=== PATIENT | female | born 1990 | race African-American/Black ===

== ENCOUNTER 2017-06-17 16:06 | Emergency (ER) | payer MEDICAID ==
[2017-06-17] MEDS ORDERED: IBUPROFEN 800 MG TABLET PO ONE (17:11)
[2017-06-17] MEDS ORDERED: PENICILLIN V POTASSIUM 500 MG TABLET PO ONE (17:11)
--- NOTE | 2017-06-17 17:13 | ER Document Report ---
HPI - HPI Patient complains to provider of: Toothache Pain Level: 5 Context: patient is a 26-year-old female presents emergency department complaining of right lower toothache that started last evening over the tooth #32. She denies any facial swelling, fevers or chills, active drainage, foul odor. She denies any difficulty swallowing, shortness of breath, chest pain, neck swelling. States that she took Tylenol prior to arrival. Last menstrual period is currently. Past Medical History - Social History Smoking Status: Smoker,Current Status Unk Family History: Reviewed & Not Pertinent Patient has suicidal ideation: No Patient has homicidal ideation: No Renal/ Medical History: Denies: Hx Peritoneal Dialysis Vertical Provider Document - CONSTITUTIONAL Agree With Documented VS: Yes Notes: PHYSICAL EXAM GENERAL: Alert, interacts well. HEENT: NCAT, MMM, Uvula midline. Airway patent. No evidence of tonsillar enlargement, peritonsillar abscess, retropharyngeal abscess. Tenderness over # 32 without any evidence of gingival inflammation, swelling, fracture or evidence of dental caries NECK: Full range of motion. Supple. Trachea midline. No evidence of Angus's angina LUNGS: Clear to auscultation bilaterally, no wheezes, rales, or rhonchi. No respiratory distress. NEUROLOGICAL: Alert and oriented x4. Normal speech. PSYCH: Normal affect, normal mood. SKIN: Warm, dry, normal turgor. No rashes or lesions noted. - INFECTION CONTROL TRAVEL OUTSIDE OF THE [place] IN LAST 30 DAYS: No - RESPIRATORY O2 Sat by Pulse Oximetry: 100 Course - Re-evaluation Re-evalutation: 06/17/17 17:12 Patient is a 26-year-old female is hemodynamically stable, no acute distress and afebrile. Patient declined a dental block at this time. Otherwise initiated on antibiotics and provided with dental follow-up. Presentation is most consistent with likely an infected tooth. Airway is patent. Vitals within normal limits. Patient is able swallow without any difficulty. There is no significant facial swelling. Patient will be started on antibiotics I' ve instructed to follow-up with dentistry as earliest ability for definitive management. Return precautions and follow-up recommendations have been discussed at length. - Vital Signs Vital signs: Temp Pulse Resp BP Pulse Ox 97.7 F 86 16 116/73 100 06/17/17 16:14 06/17/17 16:14 03/05/18 16:14 06/17/17 16:14 06/17/17 16:14 Discharge - Discharge Clinical Impression: Toothache Condition: Good Disposition: HOME, SELF-CARE Additional Instructions: You have been seen for dental pain. It is very important that you follow-up with a dentist for definitive care. Please return if you develop fever greater than 101, swelling in your face, vomiting, difficulty breathing or swallowing, or any other symptoms that are concerning to you. For pain you should take ibuprofen 600 mg every 6 hours as needed. [facility] [address] [place], [place] Saturday mornings, by appointment [facility] [address] [place] [address] [facility]ly [facility] [address] [facility] [address] [facility] ([facility]) [facility] [address] [email or web address] [address] [place] [address] Saturday- 8:00am to 5:00 pm Will see [facility] other [facility]. Charges based on income and family size and accepts Medicare, Medicaid, and Insurances Will pull molars [facility] [id number] Hours of Operation 8:00 am - 4:30 pm weekdays The following dental offices accept Medicaid: [facility] Dr. Yusuf Dr. Lebron Dr. Gifford Dr. Brown Jose Butcher [place], and Kris oral surgery Dr. Grimes ([place]) Dr. Elena ([place]) [facility] Drs. You ([place]) Dr. Morris ([place]) [facility] Dr. Peña ([place]) Drs. Reyes and ([place]) Medicaid Care Line Prescriptions: Ibuprofen [Motrin 600 Mg Tablet] 600 mg PO TID #30 tablet Penicillin V Potassium [Penicillin Vk 500 mg Tablet] 500 mg PO TID 7 Days #21 tablet
[2017-06-17 17:18] VITALS: BP 113/73
== END 2017-06-17 17:55 | disposition home or self-care (01) ==
LOC: ER 16:06
DX: K08.89 Other specified disorders of teeth and supporting structures (principal)
CPT/HCPCS: 99282; J3490 ×2

== ENCOUNTER 2018-06-02 17:58 | Emergency (ER) | payer SELFPAY ==
[2018-06-02] MEDS ORDERED: KETOROLAC TROMETHAMINE 60 MG/2 ML SDV IM ONE (21:12)
--- NOTE | 2018-06-02 21:14 | ER Document Report ---
ED General - General Chief Complaint: Vaginal Discharge Stated Complaint: HEAD/RIB PAIN, VAGINAL DISCHARGE Time Seen by Provider: 06/02/18 21:03 TRAVEL OUTSIDE OF THE [place] IN LAST 30 DAYS: No - Related Data Allergies/Adverse Reactions: No Known Allergies Allergy (Verified 12/14/17 08:39) Past Medical History - Social History Smoking Status: Current Some Day Smoker Frequency of alcohol use: None Drug Abuse: None Family History: Reviewed & Not Pertinent Patient has suicidal ideation: No Patient has homicidal ideation: No Renal/ Medical History: Denies: Hx Peritoneal Dialysis - Immunizations Immunizations up to date: Yes Physical Exam - Vital signs Vitals: Temp Pulse Resp BP Pulse Ox 100.2 F 110 H 16 100/64 99 06/02/18 19:18 06/02/18 19:18 06/02/18 19:18 06/02/18 19:18 06/02/18 19:18 Course - Vital Signs Vital signs: Temp Pulse Resp BP Pulse Ox 100.2 F 110 H 16 100/64 99 06/02/18 19:18 06/02/18 19:18 06/02/18 19:18 06/02/18 19:18 06/02/18 19:18
[2018-06-02 22:14] LABS: APPEARANCE,URINE CLOUDY; BILIRUBIN,URINE NEGATIVE (NEGATIVE); COLOR,URINE YELLOW; GLUCOSE, URINE NEGATIVE (NEGATIVE); KETONES,URINE TRACE mg/dL (NEGATIVE); LEUKOCYTE ESTERASE,URINE LARGE (NEGATIVE); NITRITE,URINE POSITIVE (NEGATIVE); PROTEIN,URINE 30 mg/dL (NEGATIVE); URINE SPECIFIC GRAVITY 1.015; UROBILINOGEN,URINE NEGATIVE mg/dL (<2.0)
--- NOTE | 2018-06-02 22:16 | ER Document Report ---
ED Medical Screen (RME) - General Chief Complaint: Vaginal Discharge Stated Complaint: HEAD/RIB PAIN, VAGINAL DISCHARGE Time Seen by Provider: 06/02/18 21:03 TRAVEL OUTSIDE OF THE [place] IN LAST 30 DAYS: No - HPI Notes: 06/02/18 22:16 Patient is a 27-year-old female that presents to the emergency department for chief complaint of bilateral side pain.. Patient reports fever that started yesterday. She has had dysuria and frequency for the last week. She does have history of urinary tract infections in the past. Patient states today she started having a sharp pain in her bilateral flanks. She states the pain has improved since this morning. She describes it as a dull achy pain with no radiation. She states it is worse with movement and with urination. She has not taken any medication at home for her discomfort today. ROS: GENERAL: fevers CV: Denies chest pain PHYSICAL EXAMINATION: GENERAL: Well-appearing, well-nourished and in no acute distress. HEAD: Atraumatic, normocephalic. EYES: Pupils equal round extraocular movements intact, conjunctiva are normal. ENT: Nares patent NECK: Normal range of motion LUNGS: No respiratory distress Musculoskeletal: Normal range of motion NEUROLOGICAL: Normal speech, normal gait. PSYCH: Normal mood, normal affect. MDM: Patient seen and examined for rapid initial assessment. Vital signs reviewed. A comprehensive ED assessment and evaluation of the patient, analysis of test results and completion of the medical decision making process will be conducted by additional ED providers. - Related Data Allergies/Adverse Reactions: No Known Allergies Allergy (Verified 12/14/17 08:39) Past Medical History - Social History Frequency of alcohol use: None Drug Abuse: None Renal/ Medical History: Denies: Hx Peritoneal Dialysis - Immunizations Immunizations up to date: Yes Physical Exam - Vital signs Vitals: Temp Pulse Resp BP Pulse Ox 100.2 F 110 H 16 100/64 99 06/02/18 19:18 06/02/18 19:18 06/02/18 19:18 06/02/18 19:18 06/02/18 19:18 Course - Vital Signs Vital signs: Temp Pulse Resp BP Pulse Ox 100.2 F 110 H 16 100/64 99 06/02/18 19:18 06/02/18 19:18 06/02/18 19:18 06/02/18 19:18 06/02/18 19:18 - Laboratory Laboratory results interpreted by me: 06/02/18 21:12 Urine Protein 30 H Urine Ketones TRACE H Urine Blood MODERATE H Urine Nitrite POSITIVE H Ur Leukocyte Esterase LARGE H
--- NOTE | 2018-06-02 22:53 | ER Document Report ---
ED General - General Chief Complaint: Vaginal Discharge Stated Complaint: HEAD/RIB PAIN, VAGINAL DISCHARGE Time Seen by Provider: 06/02/18 21:03 Notes: Patient is a 27-year-old female that presents to the emergency department for chief complaint of bilateral side pain in her ribs, headache, and vaginal discharge. She states her ribs, but the area where she was touching was in her bilateral flank areas. The pain does not radiate anywhere. She has had her symptoms for the past week, but states it was very bad yesterday. She does feel a little better now. She thinks her headache is from her side pain. Lying down makes her pain worse, sitting up makes her pain better. States her vaginal discharge has a foul odor. Reports bacterial vaginosis. She is sexually active and LMP was 2 weeks ago. Admits to only one sexual partner. She received some Toradol in triage, and states that she feels a little better. Denies fever, nausea, vomiting, or diarrhea. TRAVEL OUTSIDE OF THE [place] IN LAST 30 DAYS: No - Related Data Allergies/Adverse Reactions: No Known Allergies Allergy (Verified 12/14/17 08:39) Past Medical History - General Information source: Patient - Social History Smoking Status: Current Some Day Smoker Frequency of alcohol use: None Drug Abuse: None Family History: Reviewed & Not Pertinent Patient has suicidal ideation: No Patient has homicidal ideation: No Renal/ Medical History: Denies: Hx Peritoneal Dialysis - Immunizations Immunizations up to date: Yes Review of Systems - Review of Systems Notes: REVIEW OF SYSTEMS: CONSTITUTIONAL : Denies recent illness. Denies recent unintentional weight loss. Denies fever, chills, or sweats. EENT: Denies eye, ear, throat, or mouth pain, discharge, or symptoms. Denies nasal or sinus congestion. CARDIOVASCULAR: Denies chest pain. RESPIRATORY: Denies shortness of breath, cough, congestion, difficulty breathing, or wheezing. GASTROINTESTINAL: Denies nausea, vomiting, and diarrhea. Denies abdominal pain. Denies constipation. GENITOURINARY: See HPI MUSCULOSKELETAL: See HPI SKIN: Denies rash, itchiness, or lesions HEMATOLOGIC : Denies easy bruising or bleeding. LYMPHATIC: Denies swollen, painful, enlarged glands. NEUROLOGICAL: Denies no numbness or tingling denies weakness. Denies headache. Denies altered mental status. Denies alteration in speech. PSYCHIATRIC: Denies stress, anxiety, alteration in sleep patterns, or depression. RADIATION TECHNICIAN: See HPI All other systems reviewed and negative. Physical Exam - Vital signs Vitals: Temp Pulse Resp BP Pulse Ox 100.2 F 110 H 16 100/64 99 06/02/18 19:18 06/02/18 19:18 06/02/18 19:18 06/02/18 19:18 06/02/18 19:18 - Notes Notes: PHYSICAL EXAMINATION: GENERAL: Appears well, healthy, well-nourished, no acute distress. HEAD: Normocephalic, atraumatic. EYES: PERRL, conjunctiva normal, all extraocular movements intact, sclera non icteric ENT: Moist mucous membranes. NECK: Supple, no noticeable swelling, redness, rash. Normal range of motion. LUNGS: Equal breath sounds bilaterally and clear to auscultation. No wheezes ra les or rhonchi. CARDIOVASCULAR: S1-S2, regular rate, regular rhythm. Radial pulses 2+, normal. ABDOMEN: Normoactive bowel sounds. Soft, nontender, no guarding, no rebound tenderness, and no masses palpated. EXTREMITIES: Normal strength and range of motion, no pitting or edema. No cyanosis. NEUROLOGICAL: Moves all extremities upon command. Strength 5/5 in all extremities. PSYCH: Normal mood, normal affect. SKIN: Warm, dry. No rash, lesions, ulcerations noted. Normal skin turgor. RADIATION TECHNICIAN: White milky discharge noted. no cervical motion or adenexal tenderness noted. Course - Re-evaluation Re-evalutation: 06/02/18 22:53 A pelvic exam was done with ROJELIO Youngblood at bedside. There is some white milky discharge noted on exam. No cervical motion tenderness noted. Urinalysis shows large amount of leukocytes and moderate amount of blood. Although the patient had a moderate amount of blood in her urine, I am leaning more towards a urinary tract infection than an infected kidney stone because she has bilateral flank pain. She also stated concern about how much her antibiotics will cost because she does not have insurance. Since the patient has concern about costs, she will not receive any diagnostic imaging at this point. 06/02/18 23:20 The patient does have 4+ bacteria on her wet mount. Since her gonorrhea and Chlamydia results are not back yet, I have given her the option of being empirically treated with Rocephin and azithromycin and she agrees to this plan. She will also be started on Flagyl and doxycycline to treat bacterial vaginosis and her urinary tract infection. Return precautions were given. Verbal discharge instructions were give. Patient verbalized understanding. They are stable for discharge. - Vital Signs Vital signs: Temp Pulse Resp BP Pulse Ox 99.2 F 99 18 95/61 L 99 06/02/18 23:28 06/02/18 23:28 06/02/18 23:28 06/02/18 23:28 06/02/18 23:28 - Laboratory Laboratory results interpreted by me: 06/02/18 21:12 Urine Protein 30 H Urine Ketones TRACE H Urine Blood MODERATE H Urine Nitrite POSITIVE H Ur Leukocyte Esterase LARGE H Discharge - Discharge Clinical Impression: Vaginal discharge Headache Qualifiers: Headache type: other headache syndrome Qualified Code(s): G44.89 - Other headache syndrome Urinary tract infection Qualifiers: Urinary tract infection type: acute cystitis Hematuria presence: with hematuria Qualified Code(s): N30.01 - Acute cystitis with hematuria Condition: Stable Disposition: HOME, SELF-CARE Instructions: Urinary Tract Infection ([facility]) Additional Instructions: You have been seen in the emergency department for vaginal discharge, headache, and your sides hurting. You are being treated for bacterial vaginosis with Flagyl. Please do not drink alcohol when you are taking Flagyl. Your urine shows findings consistent with a urinary tract infection. You will be treated with Bactrim for your urinary tract infection. Please take all the antibiotics as directed even if your symptoms have improved. You also were treated for gonorrhea and chlamydia in the emergency department. If your results are positive, you will be notified. Please take Motrin 600 mg and Tylenol 1000 mg every 6 hours as needed for pain and fever. Please follow-up with your primary care physician as needed. Return to emergency room if you develop fever >101F, persistent vomiting, become lethargic, have severe pain in your sides, or any other symptoms that are concerning to you. Prescriptions: Doxycycline Hyclate 100 mg PO BID #14 capsule Metronidazole [Flagyl 500 mg Tablet] 500 mg PO Q6H #28 tablet
[2018-06-02 22:57] LABS: T.VAGINALIS (WET MOUNT) NO TRICHOMONAS SEEN
[2018-06-02 22:58] LABS: BACTERIA (WET MOUNT) 4+ BACTERIA SEEN; EPITHELIALS (WET MOUNT) 4+ EPITHELIALS SEEN; WBCS (WET MOUNT) FEW WBCS SEEN; YEAST (WET MOUNT) NO YEAST SEEN
[2018-06-02] MEDS ORDERED: AZITHROMYCIN 250 MG TABLET PO ONE (23:18)
[2018-06-02] MEDS ORDERED: METRONIDAZOLE 500 MG TABLET PO ONE (23:18)
[2018-06-02] MEDS ORDERED: CEFTRIAXONE INJ 250 MG VIAL IM ONE (23:18)
[2018-06-02] MEDS ORDERED: DOXYCYCLINE HYCLATE 100 MG TABLET PO ONE (23:19)
[2018-06-02] MEDS ORDERED: LIDOCAINE 1% INJ-PF (10 MG/ML) 30 ML SDV INJ ONE (23:19)
[2018-06-02] MEDS ORDERED: ACETAMINOPHEN 325 MG TABLET PO ONE (23:26)
[2018-06-02 23:30] VITALS: BP 95/61
[2018-06-02 23:41] LABS: CHLAM PCR NOT DETECTED (NOT DETECT); GON PCR NOT DETECTED (NOT DETECT)
== END 2018-06-03 00:01 | disposition home or self-care (01) ==
LOC: ER 17:58
DX: N30.01 Acute cystitis with hematuria (principal); N76.0 Acute vaginitis; B96.89 Other specified bacterial agents as the cause of diseases classified elsewhere; G44.89 Other headache syndrome; F17.200 Nicotine dependence, unspecified, uncomplicated
CPT/HCPCS: 99283; 96372; 96374; 87086; 81025; 87088; 87210; 81001; 87186; 87491; 87591; J1885; J3490; J0696

== ENCOUNTER 2018-09-23 02:24 | Emergency (ER) | payer SELFPAY ==
[2018-09-23 02:37] VITALS: BP 113/72
[2018-09-23] MEDS ORDERED: CLINDAMYCIN HCL 150 MG CAPSULE PO ONE (03:18)
[2018-09-23] MEDS ORDERED: KETOROLAC TROMETHAMINE 60 MG/2 ML SDV IM ONE (03:26)
--- NOTE | 2018-09-23 03:29 | ER Document Report ---
ED General - General Chief Complaint: Toothache Stated Complaint: TOOTH PAIN Time Seen by Provider: 09/23/18 02:46 Notes: Patient is a 28-year-old female without chronic medical problems who presents with 3 to 4 days of progressively worsening right mandibular dental pain. Describes the pain as a severe, intermittent, shooting pain. States that the pain comes and goes seemingly at random although is worsened by eating. Has had some improvement with naproxen. Has not been able to see a dentist due to lack of insurance. States that the pain became worse today prompting her to come to the emergency department. Denies any difficulty breathing, swallowing, fever or constitutional symptoms. No history of similar symptoms in the past. TRAVEL OUTSIDE OF THE [place] IN LAST 30 DAYS: No - Related Data Allergies/Adverse Reactions: No Known Allergies Allergy (Verified 12/14/17 08:39) Past Medical History - General Information source: Patient - Social History Smoking Status: Never Smoker Frequency of alcohol use: None Drug Abuse: None Lives with: Spouse/Significant other Family History: Reviewed & Not Pertinent Renal/ Medical History: Denies: Hx Peritoneal Dialysis - Immunizations Immunizations up to date: Yes Review of Systems - Review of Systems Notes: Constitutional: Negative for fever. HENT: Negative for sore throat. Positive for dental pain Eyes: Negative for visual changes. Cardiovascular: Negative for chest pain. Respiratory: Negative for shortness of breath. Gastrointestinal: Negative for abdominal pain, vomiting or diarrhea. Genitourinary: Negative for dysuria. Musculoskeletal: Negative for back pain. Skin: Negative for rash. Neurological: Negative for headaches, weakness or numbness. 10 point ROS negative except as marked above and in HPI. Physical Exam - Vital signs Vitals: Temp Pulse Resp BP Pulse Ox 98.3 F 74 19 113/72 100 09/23/18 02:37 09/23/18 02:37 09/23/18 02:37 09/23/18 02:37 09/23/18 02:37 Interpretation: Normal Notes: PHYSICAL EXAMINATION: GENERAL: Well-appearing, well-nourished and in no acute distress. HEAD: Atraumatic, normocephalic. EYES: sclera anicteric, conjunctiva are normal. ENT: Moist mucous membranes. The most posterior mandibular molar on the right is cracked with what appears to be a dental carry NECK: Normal range of motion LUNGS: Normal work of breathing HEART: 2+ radial pulses bilaterally EXTREMITIES: no pitting or edema. No cyanosis. NEUROLOGICAL: No focal neurological deficits. Moves all extremities spontaneously and on command. PSYCH: Normal mood, normal affect. SKIN: Warm, Dry, normal turgor, no rashes or lesions noted. Course - Re-evaluation Re-evalutation: 09/23/18 03:28 Presentation is most consistent with likely an infected tooth. Airway is patent. Vitals within normal limits. Patient is able swallow without any d ifficulty. There is no significant facial swelling. No evidence of Angus angina, apical abscess, or airway obstruction. Patient will be started on antibiotics. I've instructed to follow-up with dentistry as earliest ability for definitive management. At this time will discharge with return precautions and follow-up recommendations. Verbal discharge instructions given a the bedside and opportunity for questions given. Medication warnings reviewed. Patient is in agreement with this plan and has verbalized understanding of return precautions and the need for primary care follow-up in the next 24-72 hours. - Vital Signs Vital signs: Temp Pulse Resp BP Pulse Ox 98.3 F 74 19 113/72 100 09/23/18 02:37 09/23/18 02:37 09/23/18 02:37 09/23/18 02:37 09/23/18 02:37 Discharge - Discharge Clinical Impression: Pain, dental, Infected dental carries Condition: Good Disposition: HOME, SELF-CARE Additional Instructions: You have been seen for dental pain. It is very important that you follow-up with a dentist for definitive care. Please return if you develop fever greater than 101, swelling in your face, vomiting, difficulty breathing or swallowing, or any other symptoms that are concerning to you. For pain you should take ibuprofen 600 mg every 6 hours as needed. Prescriptions: Clindamycin HCl 300 mg PO TID #30 capsule
== END 2018-09-23 03:57 | disposition home or self-care (01) ==
LOC: ER 02:24
DX: K02.9 Dental caries, unspecified (principal); K04.7 Periapical abscess without sinus
CPT/HCPCS: 99282; 96372; J1885